=== PATIENT | female | born 1965 | race Asian ===

== ENCOUNTER 2019-12-08 19:25 | Emergency (ER) | payer SELFPAY ==
[~2019-12-08] VITALS: Ht 167.6 cm; Wt 81.8 kg
[2019-12-08 19:54] VITALS: BP 144/97
[2019-12-08] MEDS ORDERED: LIDOCAINE 1% PF 2 ML VIAL. INJ ONE (20:15)
[2019-12-08] MEDS ORDERED: CHLO15MO2 SWSP (20:23)
[2019-12-08] MEDS ORDERED: CLIN150C14 PO (20:23)
--- NOTE | 2019-12-08 20:23 | PHYS DOC ---
Past Medical History Past Medical History: No Pertinent History Past Surgical History: No Surgical History Smoking Status: Never Smoker Alcohol Use: None General Adult EDM: Chief Complaint: DENTAL PROBLEM HPI: HPI: Patient is a 54 year old female, accompanied by her daughter, who presents emergency department with complaints of front upper dental pain and gingival swelling that began today. She denies any fever, cough, sore throat, nausea, vomiting, or rash. Patient denies any injury to her teeth. She currently rates pain 10 out of 10 on pain scale, she denies any alleviating or exacerbating factors, the pain does not radiate. Review of Systems: Review of Systems: Constitutional: Denies fever or chills. [] Complete ROS is negative unless otherwise stated in the HPI. Heart Score: Risk Factors: Risk Factors: DM, Current or recent (<one month) smoker, HTN, HLP, family history of CAD, obesity. Risk Scores: Score 0 - 3: 2.5% MACE over next 6 weeks - Discharge Home Score 4 - 6: 20.3% MACE over next 6 weeks - Admit for Clinical Observation Score 7 - 10: 72.7% MACE over next 6 weeks - Early Invasive Strategies Current Medications: Current Medications Medications (Trade) Dose Ordered Sig/Nirav Start Time Stop Time Status Last Admin Dose Admin Lidocaine HCl (Xylocaine-Mpf 1% 2ml Vial) 2 ml 1X ONCE 12/08/19 20:15 12/08/19 20:16 12/08/19 20:11 2 ML Allergies: Allergies: Allergies Coded Allergies Type Severity Reaction Last Updated Verified No Known Drug Allergies 12/08/19 No Physical Exam: PE: Constitutional: Well developed, well nourished, no acute distress, non-toxic appearance. [] HENT: Normocephalic, atraumatic, bilateral external ears normal, nose normal; visible dental abscess above tooth #8 that is not currently draining any fluid, the site is erythemic and fluctuant diffuse dental decay noted throughout the patient's mouth with multiple missing and broken teeth.. [] Eyes: PERRLA, EOMI, conjunctiva normal, no discharge. [] Neck: Normal range of motion, supple, no stridor. [] Cardiovascular:Heart rate regular rhythm Lungs & Thorax: Respirations even and unlabored, no retractions, no respiratory distress Skin: Warm, dry, no erythema, no rash. [] Extremities: No cyanosis, ROM intact, no edema. [] Neurologic: Alert and oriented X 3, no focal deficits noted. [] Psychologic: Affect normal, judgement normal, mood normal. [] Current Patient Data: Vital Signs: Vital Signs Date Time Temp Pulse Resp B/P (MAP) Pulse Ox O2 Delivery O2 Flow Rate FiO2 12/08/19 19:54 98.9 88 20 144/97 (113) 97 Room Air 98.9 EKG: EKG: [] Radiology/Procedures: Radiology/Procedures: [] 1% lidocaine was injected into the apex of the dental abscess using a 22-gauge needle by myself, a small amount of yellow pus and blood drained from the site, patient reported feeling better after the procedure, minimal blood loss Course & Med Decision Making: Course & Med Decision Making Pertinent Labs and Imaging studies reviewed. (See chart for details) [] Dragon Disclaimer: Dragon Disclaimer: This electronic medical record was generated, in whole or in part, using a voice recognition dictation system. Departure Departure Impression: Primary Impression: Dental abscess Additional Impressions: Rampant dental caries Dentalgia Disposition: HOME, SELF-CARE Condition: STABLE Referrals: NO PCP (PCP) Patient Instructions: Dental Abscess, Dental Caries, Dental Pain, [id number] Additional Instructions: Fill prescription(s) and use as directed. Follow up with dentist using the referral list provided. Return to the ER if symptoms worsen. Scripts Chlorhexidine Gluconate (PERIDEX) 15 Ml Mouthwash 15 ML SWSP BID for 10 Days, #1 BOT 0 Refills [place] your teeth before use of this medication and rinse thoroughly after using the medication as it may stain your teeth. Prov: TONYA ALBERT APRN 12/08/19 Clindamycin Hcl (CLINDAMYCIN HCL) 150 Mg Capsule 450 MG PO TID for 7 Days, #63 CAP 0 Refills Prov: TONYA ALBERT APRN 12/08/19 Justicifation of Admission Dx: Justifications for Admission: Justification of Admission Dx: N/A TONYA ALBERT APRN Dec 08, 2019 20:23
== END 2019-12-08 20:29 | disposition home or self-care (01) ==
LOC: ER 19:25
DX: K04.7 Periapical abscess without sinus (principal); K02.9 Dental caries, unspecified; K08.89 Other specified disorders of teeth and supporting structures
CPT/HCPCS: 41800; 99284; J3490